=== PATIENT | female | born 1955 | race Caucasian/White ===

== ENCOUNTER 2018-09-11 07:26 | Day surgery (SDC) | payer MEDICARE, OTHER ==
[2018-09-11] MEDS ORDERED: OXYCODONE/ACETAMINOPHEN (5/325) TAB PO ×2 (10:00)
[2018-09-11] MEDS ORDERED: HYDROmorphONE 1 MG/5 ML IV SYRINGE IV ×3 (10:00)
[2018-09-11] MEDS ORDERED: ONDANSETRON 4 MG INJ IV (10:00)
[2018-09-11] MEDS ORDERED: MEPERIDINE 25 MG INJ IV (10:00)
[2018-09-11] MEDS ORDERED: DIPHENHYDRAMINE 50 MG INJ IV (10:00)
[2018-09-11] MEDS ORDERED: MIDAZOLAM 1 MG/ML 2 ML INJ (10:02)
[2018-09-11] MEDS ORDERED: CEFAZOLIN 1 GM INJ (10:08)
[2018-09-11] MEDS ORDERED: FENTAnyl 50 MCG/ML VIAL (10:08)
[2018-09-11] MEDS ORDERED: PROPOFOL 40 ML (10:08)
[2018-09-11] MEDS: BUPIVACAINE 0.5% (SDV) 30 ML INJ (10:30)
[2018-09-11] MEDS: LIDOCAINE 2% (MDV) 20 ML INJ (10:30)
[2018-09-11] MEDS: POLYMYXIN/BACITRACIN 1L IRRIG (10:40)
[2018-09-11] MEDS ORDERED: ACETAMINOPHEN 1000MG/100ML IV 100 ML (10:48)
== END 2018-09-11 10:19 | disposition home or self-care (01) ==
LOC: SDS 07:26
DX: M21.612 Bunion of left foot (principal); E03.9 Hypothyroidism, unspecified; I10 Essential (primary) hypertension; E78.5 Hyperlipidemia, unspecified
CPT/HCPCS: 28299; 73630-LT; 82962; 88304; 88311